=== PATIENT | male | born 1985 | race Caucasian/White ===

== ENCOUNTER 2020-10-02 04:23 | Emergency (ER) | payer SELFPAY ==
[2020-10-02 04:32] VITALS: BP 148/87; PULSE 90; TEMP 98.6; BMI 30.4
[2020-10-02] MEDS ORDERED: FLUORESCEIN NA 1 EA STRIP ONE (04:34)
[2020-10-02] MEDS ORDERED: TETRACAINE 0.5% OPHTH SOLN 2 ML BOTTLE ONE (04:34)
[2020-10-02] MEDS ORDERED: FLUORESCEIN NA 1 EA STRIP OD ONE (05:00)
[2020-10-02] MEDS ORDERED: TETRACAINE 0.5% OPHTH SOLN 2 ML BOTTLE OD ONE (05:00)
[2020-10-02] MEDS ORDERED: ERYTHROMYCIN 0.5% OPHTHALMIC OINTMENT 3.5 GM TUBE OS ONE (05:15)
[2020-10-02] MEDS ORDERED: ERYTHROMYCIN 0.5% OPHTHALMIC OINTMENT 3.5 GM TUBE ONE (05:16)
== END 2020-10-02 05:39 | disposition home or self-care (01) ==
LOC: JER 04:23
DX: T15.92XA Foreign body on external eye, part unspecified, left eye, initial encounter (principal)
CPT/HCPCS: 99283-25